=== PATIENT | female | born 1960 | race Hispanic/Latino ===

== ENCOUNTER → 2022-09-24 | Day surgery (SDC) | payer OTHER ==
[~2022-09-24] MED LIST: FENTANYL CITRATE/PF 100MCG/2 ML INJ ONE; LACTATED RINGER'S 1,000 ML ONE; MIDAZOLAM HCL 2 MG/2 ML VIAL ONE; OMEPRAZOLE40 MG PO; OR PHACO EYE KIT ONE; POVIDONE IODINE 5% (OPTH) 30 ML BTL ONE; PREOP PHACO EYE KIT ONE
[2022-09-24 13:15] VITALS: BP 130/68
== END | disposition home or self-care (01) ==
LOC: OR 09:18
PROVIDERS: ATTEND Ophthalmology
DX: H25.12 Age-related nuclear cataract, left eye (principal); K21.9 Gastro-esophageal reflux disease without esophagitis
CPT/HCPCS: 66984; J2250; J3010; J7121; V2632

== ENCOUNTER → 2022-10-22 | Day surgery (SDC) | payer OTHER ==
[~2022-10-22] MED LIST changes: -POVIDONE IODINE 5% (OPTH) 30 ML BTL ONE
[2022-10-22 10:35] VITALS: BP 125/71; PULSE 98; RESP 16; O2SAT 95
== END | disposition home or self-care (01) ==
LOC: OR 06:57
PROVIDERS: ATTEND Ophthalmology
DX: H25.11 Age-related nuclear cataract, right eye (principal); K21.9 Gastro-esophageal reflux disease without esophagitis
CPT/HCPCS: 66984; J7121; J2250; V2632